=== PATIENT | female | born 1970 | race Two or more races ===

== ENCOUNTER 2025-02-13 22:08 | Emergency (ER) | payer MEDICAID, OTHER ==
[~2025-02-13] VITALS: Ht 162.6 cm; Wt 82.2 kg
[2025-02-13] MEDS: predniSONE 20 MG TAB PO ONE (23:00)
[2025-02-13] MEDS: FAMOTIDINE 20 MG TAB PO ONE (23:00)
--- NOTE | 2025-02-14 00:02 | ED.PDOC ---
History of Present Illness HPI Comments 54 y/o obese, [place]ian-speaking F presents with daughter for c/c of facial and throat swelling, with associated shortness of breath. Per daughter, patient has a history of multiple food allergens and is suspected of recent exposure after consuming a republican [place] salad, containing an assortment of fruits and nuts. Denial of any rash, itchiness, or further associated symptoms. Chief Complaint: Allergic Reaction Time Seen by MD: 22:30 Reviewed Notes: Nurses Notes, Medications, Allergies Allergies: Coded Allergies: Vancomycin (Verified Allergy, Unknown, 02/13/25) Home Meds Active Scripts Famotidine (PEPCID TABLET) 20 Mg Tb, 1 TAB PO BID PRN, #60 TAB 5 Refills Prov:LISA ORELLANA MD 02/14/25 Diphenhydramine Hcl (Benadryl Allergy) 25 Mg Cap, 1 CAP PO Q6HP PRN, #60 CAP 1 Refill Prov:LISA ORELLANA MD 02/14/25 Information Source: Patient, Relative Mode of Arrival: Ambulatory Severity: Moderate Timing: Hours Duration: Since onset Prehospital treatment: None Past Medical History Past Medical History (Other): multiple food allergens Surgical History: Denies all surgeries [employer] History: Denies all [employer]ER Hx Family History Family History: Unknown Social History Smoker: Non-Smoker Alcohol: Denies ETOH Use Drugs: Denies Drug Use Lives In: Home All Other Systems: Reviewed and Negative (As per HPI) Physical Exam General Appearance: Mild Distress, Obese HEENT: Normal ENT Inspection, Pharynx Normal, TMs Normal Neck: Full Range of Motion, Non-Tender, Normal, Normal Inspection Respiratory: Chest Non-Tender, Lungs Clear, No Accessory Muscle Use, No Respiratory Distress, Normal Breath Sounds Cardiovascular: No Edema, No JVD, No Murmur, No Gallop, Normal Peripheral Pulses, Regular Rate/Rhythm Breast Exam: Deferred Gastrointestinal: No Organomegaly, Non Tender, No Pulsatile Mass, Normal Bowel Sounds, Soft Genitalia: Deferred Pelvic: Deferred Rectal: Deferred Extremities: No calf tenderness, Normal capillary refill, Normal inspection, Normal range of motion, Non-tender, No pedal edema Musculoskeletal : Apperance: Normal Neurologic: Alert, 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 Was a procedure done?: No Differential Dx Considerations may include: anaphylaxis, anaphylactic shock, angioedema, urticaria, among others X-Ray, Labs, Meds, VS Vital Signs Date Time Temp Pulse Resp B/P (MAP) Pulse Ox O2 Delivery O2 Flow Rate FiO2 02/14/25 01:18 76 16 97 Room Air 02/14/25 01:00 97.6 76 16 139/61 (87) 97 97.6 02/13/25 22:11 98.1 90 20 150/91 95 98.1 Current Medications Medications (Trade) Dose Ordered Sig/Nati Route Start Time Stop Time Status Last Admin Diphenhydramine HCl (Benadryl Capsule) 50 mg ONCE ONCE PO 02/13/25 23:00 02/13/25 23:01 DC 02/13/25 23:00 Famotidine (Pepcid Tablet) 40 mg ONCE ONCE PO 02/13/25 23:00 02/13/25 23:01 DC 02/13/25 23:00 Prednisone 40 mg ONCE ONCE PO 02/13/25 23:00 02/13/25 23:01 DC 02/13/25 23:00 Epinephrine HCl 0.1 mg ONCE ONCE IM 02/13/25 23:00 02/13/25 23:01 DC 02/13/25 23:00 Time of 1ST Reevaluation: 23:30 Reevaluation 1ST: Unchanged Patient Education/Counseling: Diagnosis, Treatment, Need For Follow Up Family Education/Counseling: Diagnosis, Treatment, Need For Follow Up SEPSIS Sepsis Screen Date sepsis recognized/suspect: Feb 13, 2025 Time Sepsis recognized/suspect: 2210 Recent Procedure: No On Antibiotic Therapy: No Respiratory Rate >20: No Heart Rate >90: No Temp<36 C (96.8 F) or >38.3 C: No SBP <90 or MAP <65 mmHG: No New Acute Mental Status Change: No Is the patient on CPAP, BIPAP,: No Vital Signs Date Time Temp Pulse Resp B/P (MAP) Pulse Ox O2 Delivery O2 Flow Rate FiO2 02/14/25 01:18 76 16 97 Room Air 02/14/25 01:00 97.6 76 16 139/61 (87) 97 97.6 02/13/25 22:11 98.1 90 20 150/91 95 98.1 Medications Medications Dose Ordered Sig/Nati Route Start Time Stop Time Status Last Admin Dose Admin Diphenhydramine HCl 50 mg ONCE ONCE PO 02/13/25 23:00 02/13/25 23:01 MO 02/13/25 23:00 Epinephrine HCl 0.1 mg ONCE ONCE IM 02/13/25 23:00 02/13/25 23:01 DC 02/13/25 23:00 Famotidine 40 mg ONCE ONCE PO 02/13/25 23:00 02/13/25 23:01 DC 02/13/25 23:00 Prednisone 40 mg ONCE ONCE PO 02/13/25 23:00 02/13/25 23:01 MO 02/13/25 23:00 Departure 1 Departure Time of Disposition: 00:30 Impression: Primary Impression: Allergic reaction Disposition: 01 HOME / SELF CARE / HOMELESS Condition: Stable e-Prescriptions Famotidine (PEPCID TABLET) 20 Mg Tb 1 TAB PO BID PRN, #60 TAB 5 Refills Prov: LISA ORELLANA MD 02/14/25 Diphenhydramine Hcl (Benadryl Allergy) 25 Mg Cap 1 CAP PO Q6HP PRN, #60 CAP 1 Refill Prov: LISA ORELLANA MD 02/14/25 Discharged With: Relative Critical Care Note Critical Care Time?: No Stability Stability form required: No Heart Score Heart Score: Heart Score Response (Comments) Value History N/A 0 EKG N/A 0 Age N/A 0 Risk Factors N/A 0 Troponin N/A 0 Total 0 I personally scribed for LISA ORELLANA MD ([email or web address]) on 02/14/25 at 00:02. Electronically submitted by Raymon Varner ([email or web address]). LISA ORELLANA MD Feb 14, 2025 00:02
[2025-02-14 01:00] VITALS: BP 139/61; TEMP 97.6
[2025-02-14] MEDS ORDERED: DIPH25CA66 PO (01:04)
[2025-02-14] MEDS ORDERED: FAMO20TA10 PO (01:04)
[2025-02-14 01:18] VITALS: PULSE 76; RESP 16; O2SAT 97
== END 2025-02-14 01:31 | disposition home or self-care (01) ==
LOC: ER 22:08
DX: T78.40XA Allergy, unspecified, initial encounter (principal); Z88.1 Allergy status to other antibiotic agents; X58.XXXA Exposure to other specified factors, initial encounter; Y93.89 Activity, other specified; Y92.89 Other specified places as the place of occurrence of the external cause; Y99.8 Other external cause status
CPT/HCPCS: 96372; 99284; J0169; J7512